=== PATIENT | female | born 1980 | race African-American/Black ===

== ENCOUNTER 2017-08-12 09:11 | Emergency (ER) | payer OTHER ==
[~2017-08-12] VITALS: Ht 165.1 cm; Wt 100.2 kg
[2017-08-12] MEDS ORDERED: LISINOPRIL10 MG ORAL (09:26)
[2017-08-12] MEDS ORDERED: METFORMIN HCL1000 M1 ORAL (09:26)
[2017-08-12 09:30] VITALS: BP 141/90
[2017-08-12 10:44] LABS: APPEARANCE,URINE SLIGHTLY CLOUDY; KETONES,URINE 4+ (NEGATIVE); LEUKOCYTE ESTERASE ,URINE 1+ (NEGATIVE); MEAN CORPUSCULAR HEMOGLOBIN 27.7 PG (27.0-31.0); MEAN CORPUSCULAR HGB CONC 31.4 G/DL (32.0-36.0); MEAN CORPUSCULAR VOLUME 88 FL (80-99); MEAN PLATELET VOLUME 11.7 FL (6.5-10.1); NITRITE,URINE NEGATIVE (NEGATIVE); PH,URINE 5 (4.5-8.0); PLATELET COUNT 202 K/UL (150-450); PROTEIN,URINE 2+ (NEGATIVE); RED BLOOD COUNT 4.08 M/UL (4.20-5.40); RED CELL DISTRIBUTION WIDTH 14.3 % (11.6-14.8); UROBILINOGEN,URINE 1 MG/DL (0.0-1.0); WHITE BLOOD COUNT 20.5 K/UL (4.8-10.8)
[2017-08-12 10:54] LABS: BACTERIA,URINE FEW /HPF; RBC,URINE 20-30 /HPF (0 - 2); SQUAMOUS EPITHELIAL CELL,UR FEW /LPF (NONE/OCC)
[2017-08-12 10:55] LABS: MUCUS,URINE MODERATE /LPF (NONE/OCC)
[2017-08-12 11:02] LABS: ALANINE AMINOTRANSFERASE 19 U/L (12-78); ALBUMIN/GLOBULIN RATIO 0.8 (1.0-2.7); ANION GAP 10 mmol/L (5-15); ASPARTATE AMINO TRANSFERASE 16 U/L (15-37); CALCIUM 9.2 MG/DL (8.5-10.1); CARBON DIOXIDE 24 MMOL/L (21-32); CHLORIDE 104 MMOL/L (98-107); CREATININE 0.8 MG/DL (0.55-1.30); GLOMERULAR FILTRATION RATE > 60 mL/min (>60); POTASSIUM 3.4 MMOL/L (3.5-5.1); SODIUM 138 MMOL/L (136-145); TOTAL PROTEIN 8.1 G/DL (6.4-8.2)
[2017-08-12 11:13] LABS: BAND NEUTROPHILS % (MANUAL) 0 % (0-8); BASOPHILS % (MANUAL) 0 % (0-2); EOSINOPHILS % (MANUAL) 0 % (0-3); LYMPHOCYTES % (MANUAL) 4 % (20-45); NEUTROPHILS % (MANUAL) 90 % (45-75); PLATELET ESTIMATE ADEQUATE; PLATELET MORPHOLOGY NORMAL; TOTAL CELLS COUNTED 100
[2017-08-12 11:14] LABS: HYPOCHROMASIA 1+
[2017-08-12] MEDS ORDERED: Ketorolac 30mg Inj IV ONE (12:15)
[2017-08-12 12:23] VITALS: BP 118/71
--- NOTE | 2017-08-12 13:22 | Emergency Room Report ---
History of Present Illness General Chief Complaint: Pain Source: Patient Present Illness HPI This patient is , EAB 2, SAB 1. The patient states that she was 10 weeks at work 3 days ago with a normal other than that she is known to have a large fibroid. She states that at work 3 days ago she had heavy bleeding and cramping. She was seen at another hospital and diagnosed with a miscarriage. She states over the following 2 days she had moderate bleeding and then now has only light cleaning. She states she continues to have pelvic cramping. She denies fever or chills. She denies nausea or vomiting. She denies chest pain or shortness of breath. She has no other complaints. Allergies: Coded Allergies: No Known Allergies (Unverified , 08/12/17) Patient History Past Surgical History: other - Gastric bypass Social History: Denies: smoking, alcohol use, drug use Last Menstrual Period: 05/29/2017 : 3 Para: 2 Reviewed Nursing Documentation: PMH: Agreed, PSxH: Agreed Nursing Documentation-PMH Past Medical History: No History, Except For Hx Diabetes: Yes Review of Systems All Other Systems: negative except mentioned in HPI Physical Exam Vital Signs Date Time Temp Pulse Resp B/P (MAP) Pulse Ox O2 Delivery O2 Flow Rate FiO2 08/12/17 09:18 98.2 62 16 141/90 99 Room Air Sp02 EP Interpretation: reviewed, normal General Appearance: no apparent distress, alert, GCS 15, non-toxic Head: normocephalic, atraumatic Eyes: bilateral eye normal inspection, bilateral eye PERRL ENT: hearing grossly normal, normal pharynx, no angioedema, normal voice Neck: full range of motion, supple/symm/no masses Respiratory: chest non-tender, lungs clear, normal breath sounds, speaking full sentences Cardiovascular #1: regular rate, rhythm, no edema Gastrointestinal: normal bowel sounds, soft, non-distended, no guarding, no rebound, tenderness - mild ttp pelvis Rectal: deferred Genitourinary: no CVA tenderness Musculoskeletal: back normal, gait/station normal, normal range of motion, non- tender Neurologic: alert, oriented x3, responsive, motor strength/tone normal, sensory intact, speech normal Psychiatric: judgement/insight normal, memory normal, mood/affect normal, no suicidal/homicidal ideation Skin: normal color, no rash, warm/dry, well hydrated Medical Decision Making Diagnostic Impression: Primary Impression: Spontaneous in first trimester ER Course This patient presents status post spontaneous . A repeat ultrasound shows no evidence of retained products. The patient has a known a very large fibroid. This could be contributing to the etiology of the miscarriage. The patient's hCG is down trending from a high of 21,003 days ago to just over 2000 today. Hemoglobin and hematocrit are stable. I was able to review the other labs obtained on Thursday that was bedside that the patient brought in with her. The patient did have an elevated white blood cell count. This is likely an inflammatory response to the miscarriage. At this time, I do not suspect endometritis. The patient was nontoxic and afebrile. She is well-appearing and does not have an acute abdomen. Did discuss the case with the on-call OB/ P[employer] Dr. Chacko who agreed with the plan. The patient was instructed to followup closely with her [employer] tomorrow. She is given very close return precautions and followup instructions. Laboratory Tests Test 08/12/17 10:30 White Blood Count 20.5 K/UL (4.8-10.8) H Red Blood Count 4.08 M/UL (4.20-5.40) L Hemoglobin 11.3 G/DL (12.0-16.0) L Hematocrit 36.0 % (37.0-47.0) L Mean Corpuscular Volume 88 FL (80-99) Mean Corpuscular Hemoglobin 27.7 PG (27.0-31.0) Mean Corpuscular Hemoglobin Concent 31.4 G/DL (32.0-36.0) L Red Cell Distribution Width 14.3 % (11.6-14.8) Platelet Count 202 K/UL (150-450) Mean Platelet Volume 11.7 FL (6.5-10.1) H Neutrophils (%) (Auto) % (45.0-75.0) Lymphocytes (%) (Auto) % (20.0-45.0) Monocytes (%) (Auto) % (1.0-10.0) Eosinophils (%) (Auto) % (0.0-3.0) Basophils (%) (Auto) % (0.0-2.0) Differential Total Cells Counted 100 Neutrophils % (Manual) 90 % (45-75) H Lymphocytes % (Manual) 4 % (20-45) L Monocytes % (Manual) 6 % (1-10) Eosinophils % (Manual) 0 % (0-3) Basophils % (Manual) 0 % (0-2) Band Neutrophils 0 % (0-8) Platelet Estimate Adequate Platelet Morphology Normal Hypochromasia 1+ Urine Color Yellow Urine Appearance Slightly cloudy Urine pH 5 (4.5-8.0) Urine Specific [place] 1.025 (1.005-1.035) Urine Protein 2+ (NEGATIVE) H Urine Glucose (UA) Negative (NEGATIVE) Urine Ketones 4+ (NEGATIVE) H Urine Occult Blood 4+ (NEGATIVE) H Urine Nitrite Negative (NEGATIVE) Urine Bilirubin Negative (NEGATIVE) Urine Urobilinogen 1 MG/DL (0.0-1.0) H Urine Leukocyte Esterase 1+ (NEGATIVE) H Urine RBC 20-30 /HPF (0 - 2) H Urine WBC 2-4 /HPF (0 - 2) Urine Squamous Epithelial Cells Few /LPF (NONE/OCC) Urine Bacteria Few /HPF (NONE) Urine Mucus Moderate /LPF (NONE/OCC) H Sodium Level 138 MMOL/L (136-145) Potassium Level 3.4 MMOL/L (3.5-5.1) L Chloride Level 104 MMOL/L (98-107) Carbon Dioxide Level 24 MMOL/L (21-32) Anion Gap 10 mmol/L (5-15) Blood Urea Nitrogen 6 mg/dL (7-18) L Creatinine 0.8 MG/DL (0.55-1.30) Estimate Glomerular Filtration Rate > 60 mL/min (>60) Glucose Level 168 MG/DL (74-106) H Calcium Level 9.2 MG/DL (8.5-10.1) Total Bilirubin 0.5 MG/DL (0.2-1.0) Aspartate Amino Transferase (AST) 16 U/L (15-37) Alanine Aminotransferase (ALT) 19 U/L (12-78) Alkaline Phosphatase 95 U/L (46-116) Total Protein 8.1 G/DL (6.4-8.2) Albumin 3.6 G/DL (3.4-5.0) Globulin 4.5 g/dL Albumin/Globulin Ratio 0.8 (1.0-2.7) L Human Chorionic Gonadotropin, Quant 2389 mIU/mL (1-6) H CT/MRI/US Diagnostic Results CT/MRI/US Diagnostic Results : Imaging Test Ordered: US Pelvis Impression No RPOC. Large fibroid. See official report. Last Vital Signs Date Time Temp Pulse Resp B/P (MAP) Pulse Ox O2 Delivery O2 Flow Rate FiO2 08/12/17 12:23 98.2 53 12 118/71 100 Room Air Status: improved Disposition: HOME, SELF-CARE Condition: Improved Referrals: NON PHYSICIAN (PCP) HARI NAVARRETE D.O. Aug 12, 2017 13:22
[2017-08-12] MEDS ORDERED: IBUPROFEN600 MG ORAL (13:43)
[2017-08-12] MEDS ORDERED: AUGMENTIN 875-1 EAC1 ORAL (13:43)
[2017-08-12] MEDS ORDERED: NORCO 5-325 TA1 EACH ORAL (13:43)
[2017-08-12 14:08] VITALS: BP 120/80
--- NOTE | 2017-08-12 16:41 | Diagnostic Imaging Report ---
Indication: Pelvic pain, spotting, recent miscarriage Technique: Transabdominal and transvaginal images Comparison: none Findings: Uterus measures 11.5 cm in length by 8.7 cm AP. Within the uterine fundus, there is a large myometrial fibroid measures 6.3 x 6.8 x 8.6 cm. There are cervical nabothian cysts. The endometrium measures 9 mm thick. No debris or other findings to suggest retained products of conception demonstrated. No intrauterine is demonstrated. There is trace free fluid in the right adnexal region. Right ovary measures 3.1 cm length. Left ovary measures 2.7 cm length. No adnexal mass demonstrated Impression: No intrauterine demonstrated, consistent with stated clinical history of spontaneous and declining beta-hCG values. No sonographic evidence of retained products of conception Negative for adnexal mass Free pelvic fluid, presumably physiologic
== END 2017-08-12 14:12 | disposition home or self-care (01) ==
LOC: EMR 10:20
DX: O03.1 Delayed or excessive hemorrhage following incomplete spontaneous abortion (principal)
CPT/HCPCS: 36415; 76830; 76856; 80053; 81003; 84702; 85007; 85025; 86850; 86900; 86901; 96361; 96374; 99284; J1885